=== PATIENT | female | born 1995 ===

== ENCOUNTER 2016-08-11 23:00 | Emergency (ER) | payer SELFPAY ==
[2016-08-11 23:00] VITALS: BMI 26.0
--- NOTE | 2016-08-11 23:17 | ED PDOC ---
HPI: Back Time Seen by Provider: 08/11/16 23:12 Chief Complaint (Nursing): Back Pain Chief Complaint (Provider): Back Pain History Per: Patient Additional Complaint(s): 20 yo female, no PMH, presents to ED with complaints of severe low back pain that developed after lifting her son. Past Medical History Vital Signs: Last Vital Signs Temp 98.5 F 08/11/16 23:03 Pulse 97 H 08/11/16 23:03 Resp 16 08/11/16 23:03 BP 114/82 08/11/16 23:03 Pulse Ox 100 08/11/16 23:03 - Home Medications Home Medications: Ambulatory Orders Medication Instructions Recorded Vit#96/Ferrous Fum/FA 1 tab PO DAILY 07/11/15 [] Ferrous Sulfate 325 mg PO TID #90 tablet 07/14/15 Ibuprofen [Motrin Tab] 600 mg PO Q6 PRN #20 tab 07/14/15 Sennosides/Docusate Sodium 1 each PO HS PRN #20 tablet 07/14/15 [Senokot-S Tablet] Acetaminophen with Codeine 1 tab PO Q8H #10 tab 08/02/15 [Tylenol with Codeine No. 3 300 mg-30 mg] Amoxicillin [Amoxil 500 mg Cap] 500 mg PO TID #30 cap 08/02/15 - Allergies Allergies/Adverse Reactions: Allergies Allergy/AdvReac Type Severity Reaction Status Date / Time No Known Allergies Allergy Verified 04/26/15 16:39 - ECG O2 Sat by Pulse Oximetry: 100
[2016-08-11] MEDS ORDERED: diaZEpam 10 mg/2 ml Inj IVP ONE (23:25)
--- NOTE | 2016-08-11 23:36 | ED PDOC ---
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 She reports spasm like pain that caused her to be unable to move and radiates down both LE. She denies fall or trauma. She has had some low back pain last 1 week for which she has been taking Advil. She denies associated CP , SOB, N/V/D, fever, cough or REVELES. Past Medical History Reviewed: Historical Data, Nursing Documentation, Vital Signs Vital Signs: Last Vital Signs Temp 98.5 F 08/11/16 23:03 Pulse 97 H 08/11/16 23:03 Resp 16 08/11/16 23:03 BP 114/82 08/11/16 23:03 Pulse Ox 100 08/11/16 23:03 - Medical History PMH: No Chronic Diseases - Surgical History Surgical History: No Surg Hx - Family History Family History: States: No Known Family Hx - Living Arrangements Living Arrangements: With Family - Social History Current smoker - smoking cessation education provided: No Ex-Smoker (has not smoked in the last 12 months): No Alcohol: None Drugs: Denies - Home Medications Home Medications: Ambulatory Orders Medication Instructions Recorded Vit#96/Ferrous Fum/FA 1 tab PO DAILY 07/11/15 [] Ferrous Sulfate 325 mg PO TID #90 tablet 07/14/15 Ibuprofen [Motrin Tab] 600 mg PO Q6 PRN #20 tab 07/14/15 Sennosides/Docusate Sodium 1 each PO HS PRN #20 tablet 07/14/15 [Senokot-S Tablet] Acetaminophen with Codeine 1 tab PO Q8H #10 tab 08/02/15 [Tylenol with Codeine No. 3 300 mg-30 mg] Amoxicillin [Amoxil 500 mg Cap] 500 mg PO TID #30 cap 08/02/15 Cyclobenzaprine [Cyclobenzaprine 10 mg PO TID PRN #15 tab 08/12/16 HCl] Naproxen [Naprosyn Tab] 250 mg PO Q12 #20 tab 08/12/16 oxyCODONE/Acetaminophen [Percocet 1 ea PO Q6 PRN #8 tab 08/12/16 5/325 mg Tab] - Allergies Allergies/Adverse Reactions: Allergies Allergy/AdvReac Type Severity Reaction Status Date / Time No Known Allergies Allergy Verified 04/26/15 16:39 Review of Systems ROS Statement: Except As Marked, All Systems Reviewed And Found Negative Musculoskeletal: Positive for: Back Pain Physical Exam - Reviewed Nursing Documentation Reviewed: Yes Vital Signs Reviewed: Yes - Physical Exam Appears: Positive for: Uncomfortable Head Exam: Positive for: ATRAUMATIC, NORMOCEPHALIC Skin: Positive for: Normal Color, Warm, Dry Eye Exam: Positive for: EOMI, PERRL ENT: Positive for: Normal ENT Inspection Neck: Positive for: Normal Cardiovascular/Chest: Positive for: Regular Rate, Rhythm. Negative for: Edema, JVD, Murmur Respiratory: Positive for: Normal Breath Sounds. Negative for: Crackles, Rales , Wheezing Gastrointestinal/Abdominal: Positive for: Normal Exam, Bowel Sounds, Soft. Negative for: Tenderness Back: Positive for: Normal Inspection, Muscle Spasm (B/L paralumbar spasm noted) . Negative for: L CVA Tenderness, R CVA Tenderness Extremity: Positive for: Normal ROM. Negative for: Tenderness, Pedal Edema Neurologic/Psych: Positive for: Alert, Oriented. Negative for: Motor/Sensory Deficits - Laboratory Results Result Diagrams: 08/11/16 23:37 08/11/16 23:37 - ECG O2 Sat by Pulse Oximetry: 100 Medical Decision Making Medical Decision Makin yo female with acute low back pain Labs, CT LS, Trial of Valium and Toradol Labs reviewed no clinically sig abnlty CT LS shows mild disc disease Pt c/o perisistent pain after multiple pain medication dosages; will transfer care at 7AM to Dr Elaina Barbosa Intractable Back Pain Fair Disposition - Clinical Impression Clinical Impression: Spasm of back muscles - Patient ED Disposition Is Patient to be Admitted: Transfer of Care - Disposition Referrals: Former[facility] [place] [Outside] Disposition: Transfer of Care Disposition Time: 07:00 Condition: STABLE Additional Instructions: See clinic this week for further testing. Return to ER for any worse or new symptoms, pain/weakness/numbness or trouble with urination. Prescriptions: Cyclobenzaprine [Cyclobenzaprine HCl] 10 mg PO TID PRN #15 tab PRN Reason: back pain Naproxen [Naprosyn Tab] 250 mg PO Q12 #20 tab oxyCODONE/Acetaminophen [Percocet 5/325 mg Tab] 1 ea PO Q6 PRN #8 tab PRN Reason: Pain, Severe (8-10) Instructions: Muscle Spasm (ED), Back Pain (ED) Print Language: JORDANIAN Patient Signed Over To: Shiv Delaney III
[2016-08-12 00:04] LABS: BASO % 0.1 % (0.0-2.0); EOS % 0.6 % (0.0-4.0); LYMPH # 1.7 K/uL (1.0-4.3); LYMPH % 22.3 % (20.0-40.0); MEAN CELL VOLUME 87.1 fl (81.0-99.0); MEAN CORPUSCULAR HEMOGLOBIN 29.3 pg (27.0-31.0); MEAN CORPUSCULAR HGB CONC 33.7 g/dL (33.0-37.0); MEAN PLATELET VOLUME 8.1 fl (7.2-11.7); MONO # 0.7 K/uL (0.0-0.8); MONO % 9.5 % (0.0-10.0); NEUT # 5.2 K/uL (1.8-7.0); NEUT % 67.5 % (50.0-75.0); NRBC % 0.1 % (0.0-0.0); RED CELL DISTRIBUTION WIDTH 13.4 % (11.5-14.5); WHITE BLOOD COUNT 7.8 K/uL (4.8-10.8)
[2016-08-12 00:23] LABS: ALB/GLOB RATIO 1.1 (1.0-2.1); ALKALINE PHOSPHATASE 78 U/L (38-126); ALT/SGPT 34 U/L (9-52); AST/SGOT 43 U/L (14-36); BILIRUBIN,TOTAL 0.4 mg/dl (0.2-1.3); BLOOD UREA NITROGEN 11 mg/dl (7-17); CALCIUM 9.1 mg/dL (8.4-10.2); CARBON DIOXIDE 24 mmol/L (22-30); CHLORIDE 103 mmol/L (98-107); GFR AFRICAN-AMERICAN > 60; GLUCOSE,RANDOM 106 mg/dL (65-105); POTASSIUM 4.1 MMOL/L (3.6-5.0); SODIUM 136 mmol/l (132-148); TOTAL PROTEIN 8.2 G/DL (6.3-8.2)
--- NOTE | 2016-08-12 00:43 | CT ---
EXAM: CT Lumbar Spine Without Intravenous Contrast. CLINICAL HISTORY: 20 years old, female; Pain; Low back pain; Patient HX: B/l lbp x 2 weeks. Worst pain couple hrs ago. Limited body motion TECHNIQUE: Axial computed tomography images of the lumbar spine without intravenous contrast. This CT exam was performed using one or more of the following dose reduction techniques: automated exposure control, adjustment of the mA and/or kV according to patient size, and/or use of iterative reconstruction technique. Coronal and sagittal reformatted images were created and reviewed. COMPARISON: No relevant prior studies available. FINDINGS: Vertebrae: Unremarkable. No acute fracture. Sacrum/coccyx: Subsegmental sclerotic density in the right upper sacrum most probably reflects a benign bone island. No acute fracture. Discs/spinal canal/neural foramina: Mild disc bulges are noted most notably at L3-L4, L4-L5 and L5-S1. These do not lead to high-grade central canal stenosis. Soft tissues: Unremarkable. IMPRESSION: 1. No evidence for fracture or subluxation. 2. No evidence for compression deformity. 3. No evidence for high-grade central canal stenosis. 4. Disc bulges as described.
[2016-08-12] MEDS ORDERED: Sodium Chloride 0.9% 1,000 ML IV STA ×2 (04:09→05:13)
[2016-08-12] MEDS ORDERED: Lidocaine 5% Patch TD STA (07:07)
--- NOTE | 2016-08-12 07:15 | ED PDOC ---
- Laboratory Results Result Diagrams: 08/11/16 23:37 08/11/16 23:37 - ECG O2 Sat by Pulse Oximetry: 100 (RA) Pulse Ox Interpretation: Normal Medical Decision Making Medical Decision Making: Time: 7:00 Initial impression: Muscle Spasm Initial plan: --endorsed Pending revaluation at 7am 830am- improved, able to ambulate on own, urinated without difficulty, denies numbness or weakness, does admit to some radicular pain to both legs. Offered and advised on admission to hospital for Obs and possible MRI but wants to go home. Clinic Dr Qureshi came to see patient and will assure she gets urgent followup within 2 days. Instructed via [employer] extruding machine operator that patient is to return for any weakness, worse pain, incontinence or inability to urinate, or any concern. Rx medications for pain and spasm. Scribe Attestation: Documented by Courtney Rome, acting as a scribe for Shiv Delaney MD. Provider Scribe Attestation: All medical record entries made by the Scribe were at my direction and personally dictated by me. I have reviewed the chart and agree that the record accurately reflects my personal performance of the history, physical exam, medical decision making, and the department course for this patient. I have also personally directed, reviewed, and agree with the discharge instructions and disposition. Disposition Counseled Patient/Family Regarding: Studies Performed, Diagnosis, Need For Followup - Clinical Impression Clinical Impression: Spasm of back muscles - POA Present On Arrival: None - Disposition Referrals: [facility] [place] [Outside] Disposition: Routine/Home Disposition Time: 09:03 Condition: STABLE Additional Instructions: See clinic this week for further testing. Return to ER for any worse or new symptoms, pain/weakness/numbness or trouble with urination. Prescriptions: Cyclobenzaprine [Cyclobenzaprine HCl] 10 mg PO TID PRN #15 tab PRN Reason: back pain Naproxen [Naprosyn Tab] 250 mg PO Q12 #20 tab oxyCODONE/Acetaminophen [Percocet 5/325 mg Tab] 1 ea PO Q6 PRN #8 tab PRN Reason: Pain, Severe (8-10) Instructions: Muscle Spasm (ED), Back Pain (ED) Print Language: SAMMARINESE
[2016-08-12 07:27] VITALS: BP 103/49; PULSE 62; RESP 18; TEMP 98.1
[2016-08-12 07:47] LABS: RBC URINE 1 /hpf (0-3); URINE BACTERIA RARE (<OCC); URINE BILIRUBIN NEGATIVE (NEGATIVE); URINE BLOOD NEGATIVE (NEGATIVE); URINE COLOR YELLOW (YELLOW); URINE GLUCOSE (UA) NEG (Normal); URINE KETONE TRACE mg/dL (NEGATIVE); URINE LEUKOCYTE ESTERASE TRACE Leu/uL (Negative); URINE PROTEIN NEGATIVE (NEGATIVE); URINE UROBILINOGEN 0.2-1.0 mg/dL (0.2-1.0); WBC URINE 5 /hpf (0-5)
[2016-08-12 08:59] VITALS: O2SAT 100
== END 2016-08-12 10:20 | disposition home or self-care (01) ==
LOC: H.ER 23:00
DX: M62.830 Muscle spasm of back (principal)